=== PATIENT | male | born 1990 | race Caucasian/White ===

== ENCOUNTER → 2018-12-27 | Outpatient (CLI) | payer OTHER ==
--- NOTE | 2018-12-27 14:25 | RAD ---
AP and Lateral Views of the Chest 12/27/2018 8:31 AM Indication: Left-sided chest discomfort with inspiration. Comparison: None Findings: There is no focal consolidation or infiltrate identified. The cardiomediastinal silhouette is within normal limits. There is no evidence of pneumothorax or pleural effusion. No acute osseous abnormalities are identified. Impression: No evidence of acute cardiopulmonary process. Electronically signed by: Jayme Hutson MD (12/27/2018 2:23 PM) [id number]
== END | disposition home or self-care (01) ==
LOC: PMG 08:16
PROVIDERS: ATTEND Physician Assistant Medical
DX: R07.89 Other chest pain (principal)
CPT/HCPCS: 71046

== ENCOUNTER → 2020-10-11 | Outpatient (CLI) | payer OTHER ==
--- NOTE | 2020-10-11 16:15 | RAD ---
EXAM: CT abdomen without contrast. HISTORY: Abdominal pain. TECHNIQUE: CT of the abdomen was performed without intravenous contrast. One or more of the following individualized dose reduction techniques were utilized for this examination: 1. Automated exposure control. 2. Adjustment of the mA and/or kV according to patient size. 3. Use of iterative reconstruction technique. COMPARISON: None. FINDINGS: Lung windows reveal a tiny calcified granuloma in the right lower lobe. Bone windows reveal no suspicious lesions. The liver, gallbladder, pancreas, adrenal glands, spleen and kidneys are unremarkable without contras t. The entire course of the ureters is not seen, but there are no renal or ureteral calculi in this f [id number]. There are no pathologically enlarged lymph nodes. The appendix is not inflamed. There is no small bow el obstruction. IMPRESSION: 1. No cause for pain is identified. Electronically signed by: Nohemi Elam MD (10/11/2020 4:12 PM) [facility]
== END ==
LOC: CT 15:10
PROVIDERS: ATTEND Physician Assistant Medical
DX: R10.9 Unspecified abdominal pain (principal)
CPT/HCPCS: 74150